=== PATIENT | male | born 1975 | race African-American/Black ===

== ENCOUNTER 2020-01-21 10:24 | Emergency (ER) | payer MEDICAID ==
[~2020-01-21] VITALS: Ht 188 cm; Wt 106.0 kg
[~2020-01-21 10:24] MED LIST: CLON0.1T14; LISI2.5T47; QUET25TA; TRAZ-251
[2020-01-21 10:28] VITALS: BP 138/88
[2020-01-21] MEDS ORDERED: IBUPROFEN 800MG TABLET PO ONE (11:00)
[2020-01-21] MEDS ORDERED: NEOMYCIN-POLYMYXIN B-HYDROCORTISONE 1% OTIC SOLN 10ML LEFT EAR ONE (11:00)
[2020-01-21] MEDS ORDERED: AMOXICILLIN/POTASSIUM CLAVULANATE 875/125MG TAB PO ONE (11:00)
== END 2020-01-21 11:22 | disposition home or self-care (01) ==
LOC: ER 10:32
DX: H66.92 Otitis media, unspecified, left ear (principal); H60.92 Unspecified otitis externa, left ear; E11.9 Type 2 diabetes mellitus without complications; Z79.899 Other long term (current) drug therapy
CPT/HCPCS: 99284